=== PATIENT | male | born 1955 | race Two or more races ===

== ENCOUNTER 2020-02-07 15:07 | Inpatient (IN) | payer OTHER ==
[~2020-02-07] VITALS: Ht 167.6 cm; Wt 108.9 kg
[2020-02-07] MEDS ORDERED: COZAAR100 MG (15:27)
--- NOTE | 2020-02-07 15:27 | NUR ---
PACIENTE REFIERE DOLOR EN EL CUERPO, DIIFUCLTAD AL RESPIRAR, REFIERE SENTIRSE FATIGADO, Y FIEBRE. PACIENTE REFIERE QUEHACE 2 SEMANAS LLEGO DE [place].
--- NOTE | 2020-02-07 17:16 | NUR ---
SE EDCUAA PTE SOBRE TX MEDICO MIRELLA REFIERE ENTENDER. SE TERRI MUESTRAS DE LAB UTILIZANDO MEDIDAS ASEPTICAS. SE COLOCA H/L A PTE EL CUAL SE ENCUENTRA PATENTE Y GREG DE EDEMA. SE NOTIFICA ESTUDIO DE RX Y ABGS PENDIENTE A REALIZAR.
--- NOTE | 2020-02-07 18:37 | NUR ---
SE COLOCA CN A 3LTS. PTE SE CONTINUA MONITORIANDO POR CAMBIOS.
--- NOTE | 2020-02-07 19:03 | NUR ---
SE COLOCA IV PUSH DE 0.9NSS 250ML. SE TERRI B/P A PTE, LUEGO SE COLOCA 0.9NSS BAJANDO A 100ML/HR.
[2020-02-21] MEDS ORDERED: LOSARTAN POTAS100 MG PO (08:28)
[2020-02-21] MEDS ORDERED: REXULTI2 MG PO (08:29)
[2020-02-21] MEDS ORDERED: BUPROPION XL300 MG PO (08:30)
[2020-03-03] MEDS ORDERED: DERMACINRX5000 UNIT PO (14:39)
[2020-03-03] MEDS ORDERED: VITAMIN C500 M6 PO (14:39)
[2020-03-03] MEDS ORDERED: PROAIR HFA8.5 GM IH (14:42)
[2020-03-03] MEDS ORDERED: CLONAZEPAM0.5 MG PO (14:45)
== END 2020-03-03 18:43 | disposition home or self-care (01) | DRG 177 ==
LOC: ER 15:07 → ICU-2 21:13 → SEC-K 02-10 17:06 → MEDJ 02-10 17:12
PROVIDERS: ADMIT Internal Medicine; ATTEND Internal Medicine
PROC: 4A033R1 Measurement of Arterial Saturation, Peripheral, Percutaneous Approach (ICD-10-PCS; principal; 2020-02-07)
PROC: 02HV33Z Insertion of Infusion Device into Superior Vena Cava, Percutaneous Approach (ICD-10-PCS; 2020-02-08)
PROC: BW28ZZZ Computerized Tomography (CT Scan) of Head (ICD-10-PCS; 2020-02-08)
PROC: CB2YYZZ Tomographic (Tomo) Nuclear Medicine Imaging of Respiratory System using Other Radionuclide (ICD-10-PCS; 2020-02-08)
PROC: B24BZZZ Ultrasonography of Heart with Aorta (ICD-10-PCS; 2020-02-08)
PROC: 4A12X4Z Monitoring of Cardiac Electrical Activity, External Approach (ICD-10-PCS; 2020-02-10)
DX: U07.1 COVID-19 (principal); J12.89 Other viral pneumonia; E87.1 Hypo-osmolality and hyponatremia; J98.11 Atelectasis; J44.1 Chronic obstructive pulmonary disease with (acute) exacerbation; I10 Essential (primary) hypertension; F32.9 Major depressive disorder, single episode, unspecified; E86.0 Dehydration; E66.9 Obesity, unspecified; K70.30 Alcoholic cirrhosis of liver without ascites; R09.02 Hypoxemia